=== PATIENT | male | born 1985 | race Caucasian/White ===

== ENCOUNTER 2017-04-02 11:45 | Emergency (ER) | payer SELFPAY ==
[~2017-04-02] VITALS: Ht 182.9 cm; Wt 112.5 kg
--- NOTE | 2017-04-02 12:07 | NUR ---
Dr Rm at the bedside for eval and exam.
[2017-04-02 12:12] VITALS: BP 142/71
--- NOTE | 2017-04-02 12:22 | NUR ---
Patient discharged to home in stable conditon. Written and verbal after care instructions given. Patient verbalizes understanding of instructions.
== END 2017-04-02 12:22 | disposition home or self-care (01) ==
LOC: ER 11:45
DX: M54.40 Lumbago with sciatica, unspecified side (principal); Z88.0 Allergy status to penicillin
CPT/HCPCS: 99281; A4663